=== PATIENT | female | born 1985 | race Caucasian/White ===

== ENCOUNTER 2025-01-28 12:00 | Emergency (ER) | payer OTHER ==
[2025-01-28 12:51] LABS: APPEARANCE,URINE SLT CLOUDY; GLUCOSE,URINE NEGATIVE (NEGATIVE); OCCULT BLOOD,URINE NEGATIVE (NEGATIVE)
[2025-01-28 12:59] LABS: EPITHELIAL CELLS,URINE OCCASIONAL (NONE-FEW)
[2025-01-28] MEDS: fentaNYL 100 MCG/2 ML SDV IVPUSH ONE (14:51)
== END 2025-01-28 15:46 | disposition home or self-care (01) ==
LOC: MW.ED 12:00
DX: K59.00 Constipation, unspecified (principal); Z79.890 Hormone replacement therapy
CPT/HCPCS: 74018; 81001; 81025; 87086; 96361; 96374; 99284; J3010; J7030; 99283